=== PATIENT | male | born 2000 | race Caucasian/White ===

== ENCOUNTER 2019-11-06 11:39 | Emergency (ER) | payer MEDICAID, SELFPAY ==
[2019-11-06 11:42] VITALS: BP 123/72; PULSE 75; RESP 18; TEMP 36.8; O2SAT 95
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
== END 2019-11-06 12:49 | disposition home or self-care (01) ==
PROVIDERS: Emergency Provider Physician Assistant
DX: M54.5 Low back pain (principal); V43.52XA Car driver injured in collision with other type car in traffic accident, initial encounter; Z04.1 Encounter for examination and observation following transport accident
CPT/HCPCS: 99282

== ENCOUNTER 2022-07-16 16:43 | Emergency (ER) | payer MEDICAID, SELFPAY ==
[2022-07-16 16:50] VITALS: BP 138/87; PULSE 80; RESP 15; TEMP 36.8; O2SAT 99
--- NOTE | 2022-07-16 17:00 | DI.RAD_ITS ---
Exam(s) XR FOOT RT COMPLETE EXAM: XR FOOT RT COMPLETE CLINICAL HISTORY: right foot pain, 2nd metatarsal pain, no injury. TECHNIQUE: 2D digital imaging was performed. Three views. COMPARISON: No exams were available for comparison FINDINGS: BONES: No acute fracture is present. No bony destructive lesion is seen. JOINTS: No dislocation present. SOFT TISSUE: Normal. IMPRESSION: Unremarkable radiographs of the right foot. DATA REPOSITORY: RADIATION DOSE DELIVERED:
--- NOTE | 2022-07-16 17:07 | ED.GENADUL_ITS ---
Discharge Plan Disposition Patient Disposition: Home Discharge Details Clinical Impression: Muscle strain of foot Primary Care Provider: Unknown,Unknown ED Provider: Diandra Jones Home Meds and New Rx's Prescriptions: No Action No Known Home Meds Discharge Instructions Additional Instructions: Take ibuprofen 600 mg every 8 hours with food for the next 5 days, apply ice to the top of your foot Use your boot when ambulating and try not to walk barefoot Stay off your foot is much as possible Should have an additional assessment with persistent pain greater than 1 week return earlier with new or worsening complaints Medical Decision Making This 21-year-old male presents with right foot pain for the past 2 days Point tenderness on dorsum of foot, no visible sign of trauma, neurovascularly intact X-ray was ordered which does not show acute abnormality Recommendation for repeat or additional imaging in 1 week with persistent pain Placed in a boot for comfort and referred back to primary care physician return precautions reviewed HPI General Date/Time Provider Initiated Documentation: 07/16/22 16:54 . HPI Narrative: This 21-year-old male presents with right foot pain which started approximately 2 days prior to arrival. States he was walking, heard a pop and then has had persistent pain with any walking since that time. Denies any significant trauma. 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 Denies any fever or chills. Denies any history of diabetes. Related Data Home Medications Medication Instructions Recorded Confirmed Unknown [No Known Home Meds] 08/19/13 07/16/22 Allergies Allergy/AdvReac Type Severity Reaction Status Date / Time No Known Allergies Allergy Unverified 07/16/22 16:55 General Stated Complaint: Trauma TIA: 4 PFSH All Active Problems (Updated 07/16/22 @ 17:32 by STEF Morales) Muscle strain of foot (Acute) Medical History (Updated 07/16/22 @ 17:32 by STEF Morales) Learning difficulty IEP Surgical History Circumcision Fracture, Open Treatment 2007 radius/ulnar fx repair Family History Mother Healthy adult on routine physical examination Father Healthy adult on routine physical examination Sister No problems noted. Brother No problems noted. Grandparents Diabetes Social History Smoking/Tobacco Use Status: Never Smoking risk assessment performed?: Yes Alcohol Intake: current Alcohol Intake frequency: a few times a week Alcohol type: beer Drug use: Never Substance use type: does not use Do you feel safe at home: Yes Do you feel safe in your relationship?: Yes Exam Extrem Other: Patient with tenderness to to midshaft metatarsals second and third, on dorsal aspect of foot, no significant tenderness with flexion or extension, neurovascularly intact Course Vital Signs Vital signs: Vital Signs Temperature 36.8 C 07/16/22 16:50 Pulse 80 07/16/22 16:50 Respiratory Rate 15 07/16/22 16:50 Blood Pressure 138/87 07/16/22 16:50 Pulse Oximetry 99 07/16/22 16:50 Temperature 36.8 C 07/16/22 16:50 Temperature Source Oral 07/16/22 16:50 Pulse 80 07/16/22 16:50 Respiratory Rate 15 07/16/22 16:50 Blood Pressure 138/87 07/16/22 16:50 Blood Pressure Position Supine 07/16/22 16:50 Pulse Oximetry 99 07/16/22 16:50 Oxygen Delivery Method Room Air 07/16/22 16:50 Oxygen Flow Rate 0 07/16/22 16:50 Pain Level 6 07/16/22 16:50
--- NOTE | 2022-07-16 17:17 | DI.VRAD_ITS ---
PROCEDURE INFORMATION: Exam: XR Right Foot Exam date and time: 07/16/2022 5:11 PM Age: 21 years old Clinical indication: Patient HX: Right foot pain, no injury. Pain second metatarsal. TECHNIQUE: Imaging protocol: Radiologic exam of the right foot. Views: 3 or more views. Non-weightbearing AP, oblique and lateral images of the right foot. COMPARISON: No relevant prior studies available. FINDINGS: Bones/joints: Normal. Soft tissues: Normal. IMPRESSION: No acute findings. Dictated and Authenticated by: Abdulkadir Castro MD. Ordering:MARLEN Jim MD
== END 2022-07-16 17:41 | disposition home or self-care (01) ==
PROVIDERS: Emergency Provider Physician Assistant
DX: S96.911A Strain of unspecified muscle and tendon at ankle and foot level, right foot, initial encounter (principal); X50.1XXA Overexertion from prolonged static or awkward postures, initial encounter; Y93.01 Activity, walking, marching and hiking
CPT/HCPCS: 99283; 73630

== ENCOUNTER 2023-04-09 07:39 | Emergency (ER) | payer MEDICAID, SELFPAY ==
[2023-04-09 07:42] VITALS: BP 125/73; PULSE 67; RESP 16; TEMP 36.7; O2SAT 100
[2023-04-09] MEDS: Fluorescein STRIPS 100/BOX 1 MG OP (08:20)
[2023-04-09] MEDS: Erythromycin Ophth Oint 3.5 GM TUBE OP (08:20)
[2023-04-09] MEDS: Balanced Salt Solution 15 ML BTL OP (08:20)
[2023-04-09] MEDS: Tetracaine 0.5% 4 ML BTL OP (08:20)
--- NOTE | 2023-04-09 08:47 | ED.GENADUL_ITS ---
Discharge Plan Disposition Patient Disposition: Home Discharge Details Clinical Impression: Superficial injury of right eye Primary Care Provider: Unknown,Unknown ED Provider: Thai Ward Home Meds and New Rx's Prescriptions: No Action No Known Home Meds Discharge Instructions Instructions: Corneal Abrasion (ED) Additional Instructions: Please use the provided antibiotic (erythromycin ointment) and apply half-inch to your eyelid 4 times a day for the next 5 days. Monitor symptoms very closely and if you are not seeing improvement or have any significant worsening of your symptoms return immediately to the emergency department for reassessment. Referrals: [facility] [Outside] - 3 days (For reassessment if not improving) Discharge Data Discharge Date/Time-TO BE ENTERED AT DEPARTURE: 04/09/23 08:59 Medical Decision Making Patient presenting the emergency department for chief complaint of right eye injury. Patient reports that he was working underneath his pickup truck last night and feels that either some dirt or rust got into his eye. He immediately flushed his eye and thought he had gotten everything out but this morning he woke up with significant irritation to his right eye. Patient denies any other injury or trauma, states his tetanus is up-to-date, reports photophobia and discomfort but no for vision loss. Patient is well-appearing with no significant facial trauma, both Hoffmann lamp and slit-lamp were utilized to evaluate the right eye which showed significant photophobia somewhat limiting exam but no fluorescein dye uptake was noted in the on general irritation and erythema no other trauma could be appreciated on exam. I suspect an abrasion so will place patient on erythromycin ointment and we did verify patient's tetanus status. Close monitoring and return precautions were discussed along with follow-up. After discussion of diagnosis and plan of care patient has no further needs, questions, or concerns and states clear understanding to return to the emergency department for any worsening symptoms. This documentation was generated using [employer] dictation system, please disregard any oddities of phrase or misspellings. HPI General Mode of arrival: ambulatory . Date/Time Provider Initiated Documentation: 04/09/23 08:04 . Limitations to Documentation: no limitations . Information obtained by: patient and RN notes reviewed . History of Present Illness 22 year old M presents to the emergency department with the chief complaint of Right eye injury, described as moderate, Quality is described as sharp, and is localized to the right (eye). Patient started experiencing this day(s) (1) and it has been constant. No relieving factors improve symptom(s), Patient notes no other symptoms.. Patient did receive the following treatments prior to arrival, other (Rinsed eye) Related Data Home Medications Medication Instructions Recorded Confirmed Unknown [No Known Home Meds] 08/19/13 04/09/23 Allergies Allergy/AdvReac Type Severity Reaction Status Date / Time No Known Allergies Allergy Unverified 04/09/23 07:55 General Stated Complaint: EyeProblem TIA: 4 Review of Systems Constitutional Constitutional: Denies fever(s) Eyes Eyes: Reports as per HPI, Denies blurry vision, Denies eye discharge, Reports irritation, Reports eye pain and Reports photophobia ENT Ears, Nose, Mouth, and Throat: Denies facial pain Integumentary/Breasts Skin/Breast: Denies rash PFSH All Active Problems Superficial injury of right eye (Acute) Medical History Learning difficulty IEP Surgical History Fracture, Open Treatment 2007 radius/ulnar fx repair Circumcision Family History Mother Healthy adult on routine physical examination Father Healthy adult on routine physical examination Sister No problems noted. Brother No problems noted. Grandparents Diabetes Social History Smoking/Tobacco Use Status: Current every day Tobacco Type: smokeless tobacco Smoking risk assessment performed?: Yes Alcohol Intake: current Alcohol Intake frequency: a few times a week Alcohol type: beer Drug use: Never Substance use type: does not use Housing: house Do you feel safe at home: Yes Do you feel safe in your relationship?: Yes Additional Social history: lives at mothers house ANISHA Aquino 04/09/23 Exam Const General: cooperative, no acute distress and not ill appearing Orientation: alert, awake and oriented x3 HENMT Mouth: moist mucous membranes Eyes Alignment and Position: alignment normal Periorbital: periorbital findings normal Eyelids: eyelids normal Conjunctivae: conjunctival abnormality right conjunctival injection and discharge other (clear) Sclera: scleral abnormality right scleral injection diffuse Cornea: corneas normal and fluorescein used Pupils: PERRL Direct ophthalmoscopy: no papilledema and photophobia Resp Effort & Inspection: normal respiratory effort, able to speak in complete sentences and no respiratory distress Skin General skin exam: no rashes or lesions noted Neuro General: patient alert, patient awake, patient oriented x3, moves all extremities and no focal motor deficits Course Vital Signs Vital signs: Vital Signs Temperature 36.7 C 04/09/23 07:42 Pulse 67 04/09/23 07:42 Respiratory Rate 16 04/09/23 07:42 Blood Pressure 125/73 04/09/23 07:42 Pulse Oximetry 100 04/09/23 07:42 Temperature 36.7 C 04/09/23 07:42 Pulse 67 04/09/23 07:42 Respiratory Rate 16 04/09/23 07:42 Blood Pressure 125/73 04/09/23 07:42 Pulse Oximetry 100 04/09/23 07:42 PAWSS Have you Been Recently Intoxicated or Drunk Within the Last 30 days?: No Have you Ever Experienced Previous Episodes of Alcohol Withdrawal?: No Have you ever Experienced Withdrawal Seizures?: No Have you ever Experienced Delirium Tremens(DT)s?: No Have you ever undergone Alcohol Rehabilitation Treatment (i.e, inpt ot outpatient treatment programs)?: No Have you ever Experienced Blackouts?: No Have you ever Combined Alcohol with other Downers within the last 90 days?: No Have you ever Combined Alcohol with any other Substance of Abuse during the last 90 days?: No Result: 0
[2023-04-09 09:16] VITALS: BP 125/73; PULSE 67; RESP 16; TEMP 36.7; O2SAT 100
== END 2023-04-09 08:59 | disposition home or self-care (01) ==
PROVIDERS: Emergency Provider Nurse Practitioner Family
DX: S05.8X1A Other injuries of right eye and orbit, initial encounter (principal); Y93.89 Activity, other specified
CPT/HCPCS: 99282; 99283

== ENCOUNTER 2024-12-02 17:23 | Emergency (ER) | payer SELFPAY ==
[2024-12-02 17:26] VITALS: BP 123/79; PULSE 82; RESP 16; TEMP 36.7; O2SAT 98
[2024-12-02] MEDS: Lidocaine 1% Pres-Free 5 ML VIAL (17:48)
--- NOTE | 2024-12-02 18:00 | DI.RAD_ITS ---
Exam(s) XR THUMB LT EXAM: XR THUMB LT CLINICAL HISTORY: removal of FB. TECHNIQUE: 2D digital imaging was performed. Three views. COMPARISON: None. FINDINGS: BONES: No acute fracture is present. No bony destructive lesion is seen. JOINTS: No dislocation present. SOFT TISSUE: Normal. No foreign body is visible. IMPRESSION: No retained foreign body is visible. No evidence of fracture. The preliminary [facility] report was reviewed. DATA REPOSITORY: RADIATION DOSE DELIVERED:
[2024-12-02] MEDS: Cephalexin 500 MG CAP (18:18)
--- NOTE | 2024-12-02 19:55 | DI.VRAD_ITS ---
PROCEDURE INFORMATION: Exam: XR Left Finger(s) Exam date and time: 12/02/2024 6:19 PM Age: 24 years old Clinical indication: Other: Removal of foreign body TECHNIQUE: Imaging protocol: Radiologic exam of the left fingers. Views: Minimum 2 views. COMPARISON: No relevant prior studies available. FINDINGS: Bones/joints: The examination consists of an AP view of the hand and coned-down AP and lateral views of the left thumb. The clinical history is for foreign body removal. Preprocedural images are not available. On the current study no acute fracture or dislocation of the thumb identified. No focal lesion of the remaining digits identified on the AP view of the hand. Soft tissues: No soft tissue gas or radiodense foreign body is identified around the left thumb. IMPRESSION: 1. No acute fracture or dislocation to the left thumb. 2. No radiodense foreign bodies or soft tissue gas around the thumb. Dictated and Authenticated by: Juan Luis Thompson MD. Orderin Robert Jim MD
--- NOTE | 2024-12-02 22:13 | ED.GENADUL_ITS ---
Discharge Plan Disposition Patient Disposition: Home Condition: Stable Discharge Details Clinical Impression: Splinter Primary Care Provider: None,None ED Provider: Diandra Jones Home Meds and New Rx's Prescriptions: New cephalexin 500 mg capsule 500 mg PO Q6H 7 Days Qty: 28 0RF Discharge Instructions Additional Instructions: Dressing in 24 hours wash with soap and water take the antibiotic as prescribed, 5 to 7 days in total For spreading redness, fever, worsening pain Motrin Tylenol as needed for discomfort Discharge Data Discharge Date/Time-TO BE ENTERED AT DEPARTURE: 12/02/24 18:27 HPI General Date/Time Provider Initiated Documentation: 12/02/24 17:29 . HPI Narrative: 24-year-old male presents 1 week post suspected splinter in left thumb. Seen at [facility]; splinter removal unsuccessful. Started on topical medicine. Now has increased swelling, pain, and difficulty moving finger due to discomfort. Reports drainage from insertion site. Tetanus up to date within last 10 years. Related Data Home Medications ?Medication ?Instructions ?Recorded ?Confirmed cephalexin 500 mg capsule 500 mg PO Q6H 7 days #28 cap s 12/02/24 Previous Rx's ?Medication ?Instructions ?Recorded cephalexin 500 mg capsule 500 mg PO Q6H 7 days #28 cap s 12/02/24 Allergies Allergy/AdvReac Type Severity Reaction Status Date / Time No Known Allergies Allergy Unverified 12/02/24 17:28 General Stated Complaint: ForeignBody TIA: 4 Exam Narrative Exam Narrative: General Appearance: Normal. Vital signs: Within normal limits. HEENT: Within normal limits. Respiratory: Within normal limits. Skin: Warm and dry, no rash. Neurological: Normal. Extremities: Left thumb swollen, erythematous. Capillary refill and distal sensation intact. Serosanguineous drainage from wound on volar aspect of thumb over proximal phalanx. Palpable foreign body present. Course Vital Signs Vital signs: Vital Signs Temperature 36.7 C 12/02/24 17:26 Pulse 82 12/02/24 17:26 Respiratory Rate 16 12/02/24 17:26 Blood Pressure 123/79 12/02/24 17:26 Pulse Oximetry 98 12/02/24 17:26 Temperature 36.7 C 12/02/24 17:26 Pulse 82 12/02/24 17:26 Respiratory Rate 16 12/02/24 17:26 Blood Pressure 123/79 12/02/24 17:26 Pulse Oximetry 98 12/02/24 17:26 Pain Level 2 12/02/24 17:26 Medical Decision Making Procedure Performed Foreign body removal Anesthesia 1% lidocaine locally Specimen Removed 1 inch x 1 cm foreign body Technique Cleansed area. Removed foreign body with forceps. Irrigated area copiously. Applied dressing. Results: X-ray of left thumb shows no residual foreign body or fracture per my interpretation pending radiology review Assessment and plan :24-year-old male with suspected splinter in left thumb, presenting with increased swelling, pain, and drainage. Foreign body removed. Keflex initiated for cellulitis. Dressing applied and changed with warm water soaks daily. Pain managed with Motrin and Tylenol. Discharged home with return precautions reviewed. Follow-up in 48 hours. PFS All Active Problems (Updated 12/02/24 @ 18:24 by STEF Morales) Splinter (Acute) Medical History (Updated 12/02/24 @ 18:24 by STEF Morales) Learning difficulty IEP Surgical History Fracture, Open Treatment 2007 radius/ulnar fx repair Circumcision Family History Mother Healthy adult on routine physical examination Father Healthy adult on routine physical examination Sister No problems noted. Brother No problems noted. Grandparents Diabetes Social History Smoking/Tobacco Use Status: Current every day Tobacco Type: smokeless tobacco Smoking risk assessment performed?: Yes Alcohol Intake: current Alcohol Intake frequency: a few times a week Alcohol type: beer Drug use: Never Substance use type: does not use Housing: house Do you feel safe at home: Yes Do you feel safe in your relationship?: Yes Additional Social history: lives at [facility] ANISHA Aquino 04/09/23
== END 2024-12-02 18:27 | disposition home or self-care (01) ==
LOC: ER 18:39
PROVIDERS: Emergency Provider Physician Assistant
DX: S60.352A Superficial foreign body of left thumb, initial encounter (principal); W45.8XXA Other foreign body or object entering through skin, initial encounter
CPT/HCPCS: 99283 ×2; 73140; J2003